=== PATIENT | male | born 1955 | race Caucasian/White ===

== ENCOUNTER → 2018-01-08 | Outpatient (CLI) | payer MEDICARE | END | disposition home or self-care (01) | LOC: ROC 01-06 14:24 | PROVIDERS: ATTEND Radiology Radiation Oncology | DX: C79.31 Secondary malignant neoplasm of brain (principal) | CPT/HCPCS: 77295; 77300; 77334; 77370; G0463 ==

== ENCOUNTER → 2018-01-13 | Outpatient (CLI) | payer MEDICARE, MEDICAID ==
[~2018-01-13] MED LIST: GADOBUTROL 7.5 MMOL/7.5 ML PFS ONE
== END | disposition home or self-care (01) ==
LOC: CFH 12:08
PROVIDERS: ATTEND Radiology Radiation Oncology
DX: C79.31 Secondary malignant neoplasm of brain (principal); C34.90 Malignant neoplasm of unspecified part of unspecified bronchus or lung; G93.89 Other specified disorders of brain
CPT/HCPCS: 70553; A9585

== ENCOUNTER 2019-08-06 07:26 | Outpatient (CLI) | payer MEDICARE, MEDICAID | END 2019-08-06 23:59 | disposition home or self-care (01) | LOC: ROC 07:26 | PROVIDERS: ATTEND Radiology Radiation Oncology | DX: C79.31 Secondary malignant neoplasm of brain (principal) | CPT/HCPCS: G0463 ==